=== PATIENT | female | born 1945 | race Caucasian/White ===

== ENCOUNTER 2019-09-15 03:05 | Emergency (ER) | payer OTHER ==
[~2019-09-15] VITALS: Ht 160 cm; Wt 72.6 kg
== END 2019-09-15 07:08 | disposition home or self-care (01) ==
LOC: ER 03:05
DX: S01.01XA Laceration without foreign body of scalp, initial encounter (principal); S60.416A Abrasion of right little finger, initial encounter; Z91.013 Allergy to seafood; Z88.1 Allergy status to other antibiotic agents; Z88.8 Allergy status to other drugs, medicaments and biological substances; W01.0XXA Fall on same level from slipping, tripping and stumbling without subsequent striking against object, initial encounter
CPT/HCPCS: 70450; 99283-25

== ENCOUNTER 2022-03-11 02:17 | Emergency (ER) | payer OTHER ==
[~2022-03-11] VITALS: Ht 157.5 cm; Wt 71.7 kg
[~2022-03-11 02:17] MED LIST: ONDA4ODT MM
[2022-03-11] MEDS ORDERED: OXYC5 PO (05:13)
== END 2022-03-11 05:59 | disposition home or self-care (01) ==
LOC: ER 02:17
DX: S42.022A Displaced fracture of shaft of left clavicle, initial encounter for closed fracture (principal); W18.30XA Fall on same level, unspecified, initial encounter; Z87.891 Personal history of nicotine dependence
CPT/HCPCS: 73030; A9270

== ENCOUNTER 2023-02-08 21:52 | Emergency (ER) | payer OTHER ==
[~2023-02-08] VITALS: Ht 154.9 cm; Wt 68.5 kg
[~2023-02-08 21:52] MED LIST changes: +OXYC5 PO
[2023-02-08 21:56] VITALS: BP 174/79
== END 2023-02-08 23:15 | disposition home or self-care (01) ==
LOC: ER 21:52
DX: M79.661 Pain in right lower leg (principal); Z91.013 Allergy to seafood; Z88.1 Allergy status to other antibiotic agents; Z88.8 Allergy status to other drugs, medicaments and biological substances; J44.9 Chronic obstructive pulmonary disease, unspecified
CPT/HCPCS: 93971; 99283-25

== ENCOUNTER 2023-10-07 10:12 | Emergency (ER) | payer OTHER ==
[~2023-10-07] VITALS: Ht 157.5 cm; Wt 65.8 kg
[2023-10-07 10:31] VITALS: BP 183/77
[2023-10-07] MEDS ORDERED: Amoxicillin875 MG PO (11:13)
== END 2023-10-07 11:20 | disposition home or self-care (01) ==
LOC: ER 10:12
DX: L03.811 Cellulitis of head [any part, except face] (principal); J44.9 Chronic obstructive pulmonary disease, unspecified; Z88.8 Allergy status to other drugs, medicaments and biological substances; Z91.013 Allergy to seafood
CPT/HCPCS: 99282